=== PATIENT | female | born 1960 | race Caucasian/White ===

== ENCOUNTER → 2016-07-23 13:08 | Outpatient (CLI) | payer MEDICARE, BC ==
[2014-06-01 10:32] VITALS: BMI 20.1
[~2016-07-23 13:08] MED LIST: AZULFIDINE500 MG PO; BAYER CHEWABLE81 MG PO; CALCIUM 600 +1 EAC3 PO; CYMBALTA20 MG PO; DESERYL100 MG PO; DEXILANT60 MG PO; LEVOXYL50 MCG PO; MYSOLINE 50 MG50 MG PO; PEPCID40 MG PO; PHENERGAN25 M1 PO; PLAVIX75 MG PO; REMERON15 MG PO; SEROQUEL XR200 MG PO; SEROQUEL100 MG PO; VITAMIN D50000 UNIT PO; ZOCOR20 MG PO
[2016-07-23 13:46] LABS: BASOPHILS 0.4 % (0.0-2.0); EOSINOPHILS 2.7 % (0-7); HEMATOCRIT 47.1 % (36.0-48.0); HEMOGLOBIN 15.5 g/dL (12-16); IMMATURE GRANULOCYTES 0.3 % (0-5); LYMPHOCYTES 31.6 % (15-50); MCH 30.8 pg (26.0-34.0); MCHC 32.9 g/dL (31.0-37.0); MCV 93.5 fL (80.0-100.0); MEAN PLATELET VOLUME 10.2 fL (7.4-10.4); MONOCYTES 5.2 % (2-11); NEUTROPHILS 59.8 % (40-80); PLATELET COUNT 239 10x3/uL (130-400); RBC 5.04 10x6/uL (4.00-5.40); RDW 12.3 % (11.5-14.5); WBC 7.3 10x3/uL (4.8-10.8)
[2016-07-23 14:06] LABS: ALBUMIN 3.4 g/dL (3.4-5.0); ALKALINE PHOSPHATASE 150 U/L (46-116); ALT (SGPT) 17 U/L (10-68); CALC OSMOLALITY 269 mosm/kg (275-300); CALCIUM 9.7 mg/dL (8.5-10.1); CHLORIDE - SERUM 103 mmol/L (98-107); CREATININE - SERUM 0.8 mg/dL (0.6-1.3); GLUCOSE 79 mg/dL (74-106); POTASSIUM - SERUM 3.5 mmol/L (3.5-5.1); PROTEIN - SERUM 7.2 g/dL (6.4-8.2); SODIUM 136 mmol/L (136-145); THYROID STIMULATING HORMONE 3.52 uIU/mL (0.36-3.74); UREA NITROGEN 11 mg/dL (7-18); eGFR NON AFRICAN AMERICAN 78 mL/min (90-120)
== END | disposition home or self-care (01) ==
LOC: D.LAB 13:08
PROVIDERS: Family Medicine
DX: R63.4 Abnormal weight loss (principal)

== ENCOUNTER 2017-05-25 12:42 | Inpatient (IN) | payer MEDICARE, BC ==
[~2017-05-25] VITALS: Ht 160 cm; Wt 52.4 kg
--- NOTE | 2017-05-25 13:20 | NUR ---
PATIENT TO ROOM AT THIS TIME. VS STABLE. FAMILY AT BEDSIDE. ORIENTED TO ROOM AND CALL LIGHT. CALL LIGHT WITHIN REACH.
[2017-05-25 14:28] LABS: HEMATOCRIT 41.1 % (36.0-48.0); HEMOGLOBIN 13.7 g/dL (12-16); MCH 31.1 pg (26.0-34.0); MCHC 33.3 g/dL (31.0-37.0); MCV 93.4 fL (80.0-100.0); MEAN PLATELET VOLUME 9.6 fL (7.4-10.4); PLATELET COUNT 267 10x3/uL (130-400); RDW 13.1 % (11.5-14.5); WBC 26.3 10x3/uL (4.8-10.8)
[2017-05-25 14:34] VITALS: BP 106/61; BMI 19.5
--- NOTE | 2017-05-25 14:45 | NUR ---
PATIENT IV STARTED IN RIGHT FA X 2 STICKS AT THIS TIME. TOLERATED WITH SMALL AMOUNT OF PAIN. CALL LIGHT WITHIN REACH, FAMILY AT BEDSIDE.
[2017-05-25 14:54] LABS: ALKALINE PHOSPHATASE 128 U/L (46-116); ALT (SGPT) 14 U/L (10-68); CALC OSMOLALITY 265 mosm/kg (275-300); CALCIUM 8.9 mg/dL (8.5-10.1); CARBON DIOXIDE 21.3 mmol/L (21.0-32.0); CHLORIDE - SERUM 100 mmol/L (98-107); CREATININE - SERUM 0.7 mg/dL (0.6-1.3); GLUCOSE 96 mg/dL (74-106); POTASSIUM - SERUM 4.3 mmol/L (3.5-5.1); PROTEIN - SERUM 6.1 g/dL (6.4-8.2); SODIUM 133 mmol/L (136-145); UREA NITROGEN 13 mg/dL (7-18); eGFR NON AFRICAN AMERICAN > 90 mL/min (90-120)
[2017-05-25 15:16] LABS: LYMPHOCYTES 12 % (15-50); NEUTROPHILS 87 % (40-80); PLATELET ESTIMATE NORMAL
--- NOTE | 2017-05-25 16:00 | NUR ---
LEVAQUIN AND IVF STARTED AT THIS TIME. IV INTACT. CALL LIGHT WITHIN REACH.
[2017-05-25 17:01] VITALS: BP 106/61
--- NOTE | 2017-05-25 17:55 | NUR ---
PATIENT IN BED WITH IV INTACT. NO COMPLAINTS. CALL LIGHT WITHIN REACH. FAMILY AT BEDSIDE.
[2017-05-25] MEDS ORDERED: LITHIUM CARBON150 MG PO (18:07)
[2017-05-25] MEDS ORDERED: LAMICTAL200 MG PO (18:08)
[2017-05-25 20:00] VITALS: BP 94/47
--- NOTE | 2017-05-25 21:27 | NUR ---
ALERT,ORIENTED. WATCHING TV QUIETLY. IV INFUSING TO RIGHT ARM WITHOUT REDNESS OR EDEMA NOTED.NON PRODUCTIVE COUGH NOTED. CL IN REACH. FAMILY AT BEDSIDE.
--- NOTE | 2017-05-26 02:00 | NUR ---
PT RESTING IN BED WITH NO DISTRESS. RESPIRATIONS EVEN AND UNLABORED. VISITOR IS AT THE BEDSIDE. SIDE RAILS X 2. BED LOW. CALL LIGHT IN REACH.
--- NOTE | 2017-05-26 04:55 | NUR ---
AROUSES EASILY TO VERBAL STIMULI. NO COMPLAINTS VOICED. CL IN REACH
[2017-05-26 06:07] LABS: BASOPHILS 0.1 % (0-2); EOSINOPHILS 0.8 % (0-7); HEMATOCRIT 36.9 % (36.0-48.0); HEMOGLOBIN 11.8 g/dL (12-16); IMMATURE GRANULOCYTES 0.2 % (0-5); LYMPHOCYTES 14.3 % (15-50); MCH 30.2 pg (26.0-34.0); MCV 94.4 fL (80.0-100.0); MEAN PLATELET VOLUME 9.7 fL (7.4-10.4); MONOCYTES 2.9 % (2-11); NEUTROPHILS 81.7 % (40-80); PLATELET COUNT 279 10x3/uL (130-400); RBC 3.91 10x6/uL (4.00-5.40); RDW 13.3 % (11.5-14.5)
[2017-05-26 06:08] LABS: WBC 13.4 10x3/uL (4.8-10.8)
[2017-05-26 06:31] LABS: CALC OSMOLALITY 268 mosm/kg (275-300); CALCIUM 8.8 mg/dL (8.5-10.1); CARBON DIOXIDE 23.6 mmol/L (21.0-32.0); CHLORIDE - SERUM 104 mmol/L (98-107); CREATININE - SERUM 0.7 mg/dL (0.6-1.3); GLUCOSE 112 mg/dL (74-106); SODIUM 135 mmol/L (136-145); eGFR NON AFRICAN AMERICAN > 90 mL/min (90-120)
[2017-05-26 06:34] LABS: UREA NITROGEN 8 mg/dL (7-18)
--- NOTE | 2017-05-26 07:00 | NUR ---
PT REC'D FROM [facility]ID AGUILAR. UP AMBULATING THROUGH HALLS. NO TROUBLE WITH THIS. AAOX4. REGULAR HEART RATE AND RHYTHM. LUNG SOUNDS DIMINISHED BILAT TO LOWER LOBES. NO FISHMAN, BUT IS LABORED. PIV TO R FA FREE OF REDNESS AND SWELLING. STILL UP AMBULATING. WITH HER.
[2017-05-26 08:04] VITALS: BP 112/52
[2017-05-26 10:54] VITALS: Ht 160 cm; Wt 52.4 kg
[2017-05-26 12:22] VITALS: BP 100/62
--- NOTE | 2017-05-26 13:19 | NUR ---
Patient Name: STONE CEJA Admission Status: Elective Accout number: [id number] Admission Date: 05-25-2017 : 1960 Admission Diagnosis: Attending: RASHMI, Current LOS: 1 Anticipated DC Date: Planned Disposition: Home Primary Insurance: MEDICARE A & B Discharge Planning Comments: CM met with patient to assess discharge planning needs. Patient lives independently at home with her (Bijan) and that is where she plans to discharge too. Her will be the one to drive her home at discharge. She denies use of any DME or has any HH services at this time & does not think she will need HH at this time. CM will continue to follow and assist with discharge planning needs. PCP: [facility] [place] () [phone] Signal Apprentice: Makayla Freitas * Is the patient Alert and Oriented? Yes 0 * How many steps to enter\exit or inside your home? 5 0 * PCP [facility] 0 * Pharmacy [facility] 0 * Preadmission Environment Home with Family 0 * ADLs Independent 0 * Equipment None 0 * List name and contact numbers for known caregivers / representatives who currently or will assist patient after discharge: Bijan () [phone] * Community resources currently utilized None 0 * Additional services required to return to the preadmission environment? No 0 * Can the patient safely return to the preadmission environment? Yes 0 * Has this patient been hospitalized within the prior 30 days at any hospital? No 0 Grand Total: 0
[2017-05-26 16:09] VITALS: BP 92/55
--- NOTE | 2017-05-26 18:50 | NUR ---
ENTERED ROOM TO ADMINISTER IV ABX. PT IV SWOLLEN AND RED. UNABLE TO GET BLOOD RETURN. DC'D WITH CATHETER INTACT. PRESSURE AND DRESSING APPLIED. X2 ATTEMTPS TO RESTART IV. BOTH UNSUCCESSFUL. ASKED JEFF MELENDEZ, TO ATTEMPT TO RESTART.
[2017-05-26 20:00] VITALS: BP 108/63
--- NOTE | 2017-05-26 20:30 | NUR ---
SCHEDULED MEDICATION ADMINISTERED AT THIS TIME. PT HAS NO IV, ONE UNSUCCESSFUL ATTEMPT AT RESTARTING. PT STATED THAT SHE HAS VERY SMALL VEINS AND IS HARD TO GET AN IV STARTED. REQUESTED DWIGHT AGUILAR TO ATTEMPT. SCD'S IN ROOM BUT PT DOES NOT WANT THEM ON AT THIS TIME. SPOUSE AT BEDSIDE. CALL LIGHT IN REACH, WILL CONTINUE WITH PLAN OF CARE.
[2017-05-27] VITALS: BP 123/67
--- NOTE | 2017-05-27 00:47 | NUR ---
24G IV STARTED IN RIGHT WRIST BY DWIGHT AGUILAR. PRN ZOFRAN ADMINISTERED FOR NAUSEA. STARTED IV ABX FROM EARLIER TODAY THAT WAS UNABLE TO BE ADMINISTERED DUE TO IV INFILTRATION. PT DENIES ANY OTHER NEEDS AT THIS TIME. CALL LIGHT IN REACH, WILL CONTINUE TO MONITOR.
[2017-05-27 04:00] VITALS: BP 131/71
[2017-05-27 05:18] LABS: BASOPHILS 0.1 % (0-2); EOSINOPHILS 1.3 % (0-7); HEMATOCRIT 33.7 % (36.0-48.0); IMMATURE GRANULOCYTES 0.3 % (0-5); LYMPHOCYTES 16.6 % (15-50); MCH 30.9 pg (26.0-34.0); MCHC 32.6 g/dL (31.0-37.0); MCV 94.7 fL (80.0-100.0); MEAN PLATELET VOLUME 9.4 fL (7.4-10.4); MONOCYTES 4.4 % (2-11); NEUTROPHILS 77.3 % (40-80); PLATELET COUNT 257 10x3/uL (130-400); RBC 3.56 10x6/uL (4.00-5.40); RDW 13.2 % (11.5-14.5)
[2017-05-27 05:19] LABS: WBC 9.3 10x3/uL (4.8-10.8)
[2017-05-27 05:42] LABS: C-REACTIVE PROTEIN 11.8 mg/dL (0.0-0.9); CALC OSMOLALITY 272 mosm/kg (275-300); CALCIUM 8.7 mg/dL (8.5-10.1); CARBON DIOXIDE 24.5 mmol/L (21.0-32.0); CHLORIDE - SERUM 106 mmol/L (98-107); CREATININE - SERUM 0.6 mg/dL (0.6-1.3); GLUCOSE 105 mg/dL (74-106); POTASSIUM - SERUM 3.6 mmol/L (3.5-5.1); SODIUM 138 mmol/L (136-145); eGFR NON AFRICAN AMERICAN > 90 mL/min (90-120)
[2017-05-27 05:44] LABS: UREA NITROGEN 5 mg/dL (7-18)
--- NOTE | 2017-05-27 07:00 | NUR ---
REPORT RECIEVED ASSUMED CARE. PATIENT IN BED WITH IV INTACT. NO COMPLAINTS AT THIS TIME. CALL LIGHT WITHIN REACH.
[2017-05-27 08:16] VITALS: BP 138/77
--- NOTE | 2017-05-27 10:30 | NUR ---
PATIENT UP AMBULATING IN HALLWAY AT THIS TIME. IV INTACT. NO COMPLAINTS AT THIS TIME.
[2017-05-27 12:14] VITALS: BP 108/69
[2017-05-27] MEDS ORDERED: MUCINEX600 MG PO (12:28)
[2017-05-27] MEDS ORDERED: SINGULAIR10 MG PO (12:28)
[2017-05-27] MEDS ORDERED: TESSALON PERLE100 MG PO (12:28)
[2017-05-27] MEDS ORDERED: LEVAQUIN750 MG PO (12:29)
[2017-05-27] MEDS ORDERED: PREDNISONE10 MG PO (12:29)
[2017-05-27] MEDS ORDERED: BROVANA15 MCG/2 M INH (12:30)
[2017-05-27] MEDS ORDERED: PULMICORT0.5 MG/21 INH (12:30)
[2017-05-27] MEDS ORDERED: IPRAT-ALBUT 0.5-3 ML UPD (12:30)
--- NOTE | 2017-05-27 13:00 | NUR ---
[facility]. CM WILL CONTINUE TO FOLLOW AND ASSIST WITH DISCHARGE PLANNING NEEDS.
--- NOTE | 2017-05-27 13:45 | NUR ---
PATIENT RECIEVED DISCHARGE INSTRUCTIONS. VERBALIZED UNDERSTANDING. QUESTIONS ANSWERED AT THIS TIME. IV REMOVED WITH CATH TIP INTACT. PATIENT FAMILY AT SIDE. AWAITING WC FOR DC.
== END 2017-05-27 14:19 | disposition home or self-care (01) | DRG 190 ==
LOC: D.MS 12:42
PROVIDERS: ADMIT Family Medicine
DX: J44.0 Chronic obstructive pulmonary disease with (acute) lower respiratory infection (principal); J18.1 Lobar pneumonia, unspecified organism; J44.1 Chronic obstructive pulmonary disease with (acute) exacerbation; E86.0 Dehydration; R53.1 Weakness; Z87.891 Personal history of nicotine dependence

== ENCOUNTER → 2017-11-25 16:14 | Outpatient (CLI) | payer MEDICARE, BC ==
[2017-05-26 10:54] VITALS: BMI 19.4
[~2017-11-25 16:14] MED LIST changes: +BROVANA15 MCG/2 M INH; +IPRAT-ALBUT 0.5-3 ML UPD; +LAMICTAL200 MG PO; +LEVAQUIN750 MG PO; +LITHIUM CARBON150 MG PO; +MUCINEX600 MG PO; +PREDNISONE10 MG PO; +PULMICORT0.5 MG/21 INH; +SINGULAIR10 MG PO; +TESSALON PERLE100 MG PO
== END | disposition home or self-care (01) ==
LOC: D.CT 16:14
DX: R93.8 Abnormal findings on diagnostic imaging of other specified body structures (principal)

== ENCOUNTER 2018-02-08 08:54 | Outpatient (CLI) | payer MEDICARE, BC ==
[~2018-02-08] VITALS: Ht 160 cm; Wt 50.9 kg
[2018-02-08 09:16] LABS: BASOPHILS 0.3 % (0-2); EOSINOPHILS 3.4 % (0-7); HEMATOCRIT 40.9 % (36.0-48.0); HEMOGLOBIN 13.1 g/dL (12-16); IMMATURE GRANULOCYTES 0.1 % (0-5); LYMPHOCYTES 33.8 % (15-50); MCH 30.1 pg (26.0-34.0); MONOCYTES 9.1 % (2-11); NEUTROPHILS 53.3 % (40-80); PLATELET COUNT 272 10x3/uL (130-400); RBC 4.35 10x6/uL (4.00-5.40); RDW 13.6 % (11.5-14.5); WBC 6.7 10x3/uL (4.8-10.8)
[2018-02-08] MEDS ORDERED: GABAPENTIN100 MG PO (09:36)
[2018-02-08 09:44] LABS: APTT 28.6 SECONDS (22.8-39.4); INR 0.98 (0.85-1.17); PROTIME 12.6 SECONDS (11.6-15.0)
[2018-02-08 09:47] VITALS: BP 124/76; Ht 160 cm; Wt 50.9 kg
[2018-02-09 14:30] LABS: ACID FAST SMEAR Negative (()); AFB SPECIMEN PROCESSING Concentration (()); FUNGUS STAIN Final report (())
[2018-03-07 19:09] LABS: FUNGUS MYCOLOGY CULTURE Final report (())
== END 2018-02-08 14:12 | disposition home or self-care (01) ==
LOC: D.OPS 08:54
PROVIDERS: Internal Medicine Pulmonary Disease
DX: J18.9 Pneumonia, unspecified organism (principal); B37.0 Candidal stomatitis; J44.0 Chronic obstructive pulmonary disease with (acute) lower respiratory infection; Z87.891 Personal history of nicotine dependence; J30.9 Allergic rhinitis, unspecified; E86.0 Dehydration; K21.9 Gastro-esophageal reflux disease without esophagitis; K50.90 Crohn's disease, unspecified, without complications; D64.9 Anemia, unspecified; R53.82 Chronic fatigue, unspecified; F31.9 Bipolar disorder, unspecified; Z01.812 Encounter for preprocedural laboratory examination

== ENCOUNTER → 2018-02-10 08:40 | Outpatient (CLI) | payer MEDICARE, BC ==
[2018-02-08 09:47] VITALS: BMI 19.8
[~2018-02-10 08:40] MED LIST changes: +GABAPENTIN100 MG PO
[2018-02-11 09:19] LABS: IMMUNOGLOBULIN A 116 mg/dL (87-352); IMMUNOGLOBULIN G 634 mg/dL (700-1600)
[2018-02-13 07:11] LABS: IMMUNOGLOBULIN E 4 IU/mL (0-100)
[2018-02-15 18:10] LABS: FUNGAL - ASP FLAVUS Negative (Neg:<1:1); FUNGAL - ASP NIGER Negative (Neg:<1:1); FUNGAL - ASPER FUMIGATUS Negative (Neg:<1:1)
== END | disposition home or self-care (01) ==
LOC: D.RT 08:40
PROVIDERS: Internal Medicine Pulmonary Disease
DX: J44.9 Chronic obstructive pulmonary disease, unspecified (principal); Z87.01 Personal history of pneumonia (recurrent)

== ENCOUNTER → 2018-07-05 09:12 | Outpatient (CLI) | payer MEDICARE, BC ==
[2018-02-08 09:47] VITALS: BMI 19.8
== END | disposition home or self-care (01) ==
LOC: D.RAD 09:12
DX: J18.9 Pneumonia, unspecified organism (principal)

== ENCOUNTER 2018-11-22 19:09 | Inpatient (IN) | payer MEDICARE, BC ==
[~2018-11-22] VITALS: Ht 160 cm; Wt 50.3 kg
[2018-11-22] MEDS ORDERED: CARAFATE1 G PO (19:19)
--- NOTE | 2018-11-22 19:40 | NUR ---
PAGED RT FOR ABG'S
[2018-11-22 19:55] LABS: HEMATOCRIT 37.3 % (36.0-48.0); HEMOGLOBIN 12.3 g/dL (12-16); MCH 29.1 pg (26.0-34.0); MCV 88.4 fL (80.0-100.0); MEAN PLATELET VOLUME 8.9 fL (7.4-10.4); PLATELET COUNT 242 10x3/uL (130-400); RBC 4.22 10x6/uL (4.00-5.40); WBC 24.2 10x3/uL (4.8-10.8)
[2018-11-22 19:58] LABS: APTT 27.4 SECONDS (22.8-39.4); INR 1.01 (0.85-1.17); PROTIME 12.8 SECONDS (11.6-15.0)
[2018-11-22 20:04] LABS: ALBUMIN 3.5 g/dL (3.4-5.0); ALKALINE PHOSPHATASE 98 U/L (46-116); ALT (SGPT) 24 U/L (10-68); BILIRUBIN - TOTAL 0.72 mg/dL (0.2-1.3); CALC OSMOLALITY 271 mosm/kg (275-300); CALCIUM 9.3 mg/dL (8.5-10.1); CARBON DIOXIDE 24.6 mmol/L (21.0-32.0); CHLORIDE - SERUM 101 mmol/L (98-107); CREATININE - SERUM 0.9 mg/dL (0.6-1.3); GLUCOSE 99 mg/dL (74-106); POTASSIUM - SERUM 3.8 mmol/L (3.5-5.1); PROTEIN - SERUM 6.5 g/dL (6.4-8.2); SODIUM 135 mmol/L (136-145); UREA NITROGEN 17 mg/dL (7-18); eGFR NON AFRICAN AMERICAN 68 mL/min (90-120)
[2018-11-22 20:16] LABS: CREATINE KINASE 57 UL (21-215); PRO BNP 207 pg/mL (0-125); TROPONIN-I < 0.017 ng/mL (0.000-0.060)
[2018-11-22 20:39] LABS: EOSINOPHILS 2 % (0-7); LYMPHOCYTES 7 % (15-50); MONOCYTES 1 % (2-11); NEUTROPHILS 90 % (40-80); PLATELET ESTIMATE NORMAL
--- NOTE | 2018-11-22 20:45 | NUR ---
BEHAVIORAL HEALTH IN ROOM TO DO ASSESSESSMENT
--- NOTE | 2018-11-22 21:05 | NUR ---
PATIENT IS A LOW SUICIDE RISK. PATIENT STATED SHE ATTEMPTED SUICIDE 20 YEARS AGO. SHE ATTEMPTED TO OVERDOSE ON XANAX, WELBUTRIN, AND VODKA. PATIENT DENIES SUICIDE IDEATION AT THIS TIME. CHARGE NURSE AND ATTENDING PHYSICIAN NOTIFIED OF ASSESSMENT FINDINGS. RESOURCES GIVEN TO PATIENT.
[2018-11-23 01:22] VITALS: BP 113/69; BMI 19.7
[2018-11-23 04:00] VITALS: BP 109/63; BP 109/65
[2018-11-23 06:44] LABS: BASOPHILS 0.1 % (0-2); EOSINOPHILS 0.8 % (0-7); HEMATOCRIT 32.6 % (36.0-48.0); HEMOGLOBIN 10.7 g/dL (12-16); IMMATURE GRANULOCYTES 0.4 % (0-5); LYMPHOCYTES 9.7 % (15-50); MCHC 32.8 g/dL (31.0-37.0); MCV 88.3 fL (80.0-100.0); MEAN PLATELET VOLUME 9.6 fL (7.4-10.4); PLATELET COUNT 270 10x3/uL (130-400); RBC 3.69 10x6/uL (4.00-5.40); RDW 13.3 % (11.5-14.5); WBC 19.7 10x3/uL (4.8-10.8)
[2018-11-23 07:13] LABS: CALC OSMOLALITY 285 mosm/kg (275-300); CALCIUM 8.4 mg/dL (8.5-10.1); CARBON DIOXIDE 25.8 mmol/L (21.0-32.0); CHLORIDE - SERUM 111 mmol/L (98-107); CREATININE - SERUM 0.7 mg/dL (0.6-1.3); GLUCOSE 101 mg/dL (74-106); POTASSIUM - SERUM 3.9 mmol/L (3.5-5.1); SODIUM 143 mmol/L (136-145); UREA NITROGEN 15 mg/dL (7-18); eGFR NON AFRICAN AMERICAN 90 mL/min (90-120)
--- NOTE | 2018-11-23 07:30 | NUR ---
REC'D IN ROOM AWAKE AND ALERT. RESP EVEN AND UNLABORED WITH NO DISTRESS NOTED. CAN EXPRESS NEEDS AND WANTS. NO C/O NOTED OR VOICED. ASSESSMENT COMPLETED. C/L IN REACH AT BEDSIDE.
[2018-11-23 08:00] VITALS: BP 121/65
--- NOTE | 2018-11-23 08:15 | NUR ---
PT C/O HEADACHE RATING 7/10 ON PAIN SCALE MEDICATED WITH APAP 650 MG PER ORDERS. C/L IN REACH AT BEDSIDE.
[2018-11-23 12:00] VITALS: BP 110/60
[2018-11-23 12:36] LABS: % SATURATION 8 % (15-55); IRON 28 ug/dl (35-150); TOTAL IRON BIND CAPACITY 328 ug/dl (260-445); UNSAT IRON BIND CAPACITY 300 ug/dl (150-375)
--- NOTE | 2018-11-23 14:16 | NUR ---
I have reviewed this patient and I concur with the Shift Assessment completed by the Licensed Practical Nurse today this shift.
--- NOTE | 2018-11-23 15:27 | NUR ---
REFUSED SCD'S PER CANDICE/DAVID
[2018-11-23 20:00] VITALS: BP 140/82
[2018-11-24] VITALS: BP 132/77
[2018-11-24 04:00] VITALS: BP 105/59
[2018-11-24 06:12] LABS: BASOPHILS 0.2 % (0-2); HEMATOCRIT 33.3 % (36.0-48.0); HEMOGLOBIN 10.8 g/dL (12-16); IMMATURE GRANULOCYTES 0.3 % (0-5); LYMPHOCYTES 13.6 % (15-50); MCH 28.9 pg (26.0-34.0); MCHC 32.4 g/dL (31.0-37.0); MEAN PLATELET VOLUME 9.6 fL (7.4-10.4); MONOCYTES 3.9 % (2-11); PLATELET COUNT 247 10x3/uL (130-400); RBC 3.74 10x6/uL (4.00-5.40); RDW 13.5 % (11.5-14.5); WBC 11.9 10x3/uL (4.8-10.8)
[2018-11-24 06:22] LABS: CALC OSMOLALITY 283 mosm/kg (275-300); CALCIUM 8.9 mg/dL (8.5-10.1); CARBON DIOXIDE 26.7 mmol/L (21.0-32.0); CHLORIDE - SERUM 108 mmol/L (98-107); CREATININE - SERUM 0.7 mg/dL (0.6-1.3); GLUCOSE 96 mg/dL (74-106); POTASSIUM - SERUM 3.5 mmol/L (3.5-5.1); SODIUM 143 mmol/L (136-145); eGFR NON AFRICAN AMERICAN 90 mL/min (90-120)
[2018-11-24 06:24] LABS: UREA NITROGEN 9 mg/dL (7-18)
--- NOTE | 2018-11-24 07:15 | NUR ---
REC'D IN BED WITH EYES CLOSED EASILY TO AROUSED WHEN NAME IS CALLED. RESP EVEN AND UNLABORED WITH NO DISTRESS NOTED. CAN EXPRESS NEEDS AND WANTS. AMBULATE WITH SLOW AND STEADY GAIT. ASSESSMENT COMPLETED. C/L IN REACH AT BEDSIDE.
[2018-11-24 08:00] VITALS: BP 123/70
[2018-11-24 10:15] LABS: FOLATE (FOLIC ACID) - SERUM 14.6 ng/mL (>3.0)
--- NOTE | 2018-11-24 12:01 | NUR ---
RETURNED FROM HER PROCEDURE AT THIS TIME AWAKE AND ALERT. CAN EXPRESS NEED NONE NOTED OR VOICED. C/L IN REACH AT BEDSIDE.
--- NOTE | 2018-11-24 12:39 | MORECARE ---
CASE MANAGEMENT DISCHARGE SUMMARY PATIENT: STONE CEJA UNIT: [id number] ADM DATE: 11/22/18 AGE: 58 : 56 SEX: F [facility] AUTHOR: NALINI HUA PHYSICIAN: REFERRING PHYSICIAN: ARELI BARRON MD DATE OF SERVICE: 11/24/18 Discharge Plan Patient Name: STONE CEJA Facility: [facility]:[place] : 1960 Planned Disposition: Anticipated Discharge Date: Discharge Date: Expected LOS: Initial Reviewer: [email or web address] Initial Review Date: 11/24/2018 Generated: 11/24/18 1:38 pm Comments DCP- Discharge Planning Updated by [email or web address]: Sue Santana on 11/24/18 11:[address] CM attempted to see patient regarding discharge planning. Patient is currently gone for procedure at this time. CM will come back at later time to evaluate discharge needs. Patient Name: STONE CEJA Page [phone] at 1239 All edits/amendments must be made on the electronic document DICTATION DATE: 11/24/18 1238 FLUXER: JULIANO 11/24/18 1238 RPT#: [id number] DC DATE: STATUS: ADM IN [facility] [address] [place] [address] END OF REPORT
[2018-11-24 13:05] VITALS: Ht 160 cm; Wt 50.3 kg
[2018-11-24 16:00] VITALS: BP 106/56
[2018-11-24 16:47] LABS: EOS BF 3 %; MACROPHAGES BF 2 %; NEUT - BF 94 %
[2018-11-24 16:49] LABS: MACROPHAGES BF 9 %; NEUT - BF 90 %
--- NOTE | 2018-11-24 17:48 | NUR ---
I have reviewed this patient and I concur with the Shift Assessment completed by the Licensed Practical Nurse today this shift.
[2018-11-24 20:11] VITALS: BP 125/63
[2018-11-25 05:42] VITALS: BP 134/80
[2018-11-25 06:24] LABS: BASOPHILS 0.1 % (0-2); EOSINOPHILS 2.9 % (0-7); HEMATOCRIT 32.9 % (36.0-48.0); HEMOGLOBIN 10.6 g/dL (12-16); IMMATURE GRANULOCYTES 0.2 % (0-5); LYMPHOCYTES 16.8 % (15-50); MCH 28.9 pg (26.0-34.0); MCHC 32.2 g/dL (31.0-37.0); MCV 89.6 fL (80.0-100.0); MEAN PLATELET VOLUME 9.6 fL (7.4-10.4); MONOCYTES 5.5 % (2-11); NEUTROPHILS 74.5 % (40-80); PLATELET COUNT 228 10x3/uL (130-400); RBC 3.67 10x6/uL (4.00-5.40); RDW 13.5 % (11.5-14.5); WBC 9.9 10x3/uL (4.8-10.8)
[2018-11-25 06:39] LABS: CALC OSMOLALITY 272 mosm/kg (275-300); CALCIUM 9.3 mg/dL (8.5-10.1); CARBON DIOXIDE 25.5 mmol/L (21.0-32.0); CHLORIDE - SERUM 106 mmol/L (98-107); CREATININE - SERUM 0.6 mg/dL (0.6-1.3); GLUCOSE 93 mg/dL (74-106); SODIUM 137 mmol/L (136-145); UREA NITROGEN 9 mg/dL (7-18); eGFR NON AFRICAN AMERICAN > 90 mL/min (90-120)
[2018-11-25 06:45] LABS: POTASSIUM - SERUM 4.3 mmol/L (3.5-5.1)
--- NOTE | 2018-11-25 07:10 | NUR ---
PATIENT RECIEVED FROM PREVIOUS SHIFT RESTING IN BED. PATIENT ADMITTED WITH PNEUMONIA. RESPIRATIONS CLEAR AND NON-LABORED. 02 SAT 97% ON ROOM AIR. PATIENT DENIES ANY NEEDS AT THIS TIME, CL IN EASY REACH
[2018-11-25 07:59] VITALS: BP 101/67
--- NOTE | 2018-11-25 12:03 | MORECARE ---
CASE MANAGEMENT DISCHARGE SUMMARY PATIENT: STONE CEJA UNIT: [id number] ADM DATE: 11/22/18 AGE: 58 : 56 SEX: F ROOM/BED: D.1207 AUTHOR: NALINI HUA PHYSICIAN: REFERRING PHYSICIAN: ARELI BARRON MD DATE OF SERVICE: 11/25/18 Discharge Plan Patient Name: STONE CEJA Facility: [facility]:[place] : 1960 Planned Disposition: Home Anticipated Discharge Date: 11/26/18 Discharge Date: Expected LOS: 4 Initial Reviewer: [email or web address] Initial Review Date: 11/24/2018 Generated: 11/25/18 1:03 pm DCP- Discharge Planning Updated by [email or web address]: Sue Santana on 11/24/18 11:[address] CM attempted to see patient regarding discharge planning. Patient is currently gone for procedure at this time. CM will come back at later time to evaluate discharge needs. Last DP export: 11/24/18 11:39 a Patient Name: STONE CEJA Page [id number] at 1203 All edits/amendments must be made on the electronic document DICTATION DATE: 11/25/181201 MANAGER CLINICAL: JULIANO 11/25/181201 RPT#: [id number] DC DATE: STATUS: ADM IN [facility] [address] [place] [address] END OF REPORT
--- NOTE | 2018-11-25 12:13 | MORECARE ---
CASE MANAGEMENT DISCHARGE SUMMARY PATIENT: STONE CEJA UNIT: [id number] ADM DATE: 11/22/18 AGE: 58 : 56 SEX: F ROOM/BED: D.1207 AUTHOR: NALINI HUA PHYSICIAN: REFERRING PHYSICIAN: ARELI BARRON MD DATE OF SERVICE: 11/25/18 Discharge Plan Patient Name: STONE CEJA Facility: [facility]:[place] : 1960 Planned Disposition: Home Anticipated Discharge Date: 11/26/18 Discharge Date: Expected LOS: 4 Initial Reviewer: [email or web address] Initial Review Date: 11/24/2018 Generated: 11/25/18 1:12 pm DCP- Discharge Planning Updated by [email or web address]: Sue Santana on 11/24/18 11:[address] CM attempted to see patient regarding discharge planning. Patient is currently gone for procedure at this time. CM will come back at later time to evaluate discharge needs. DCPIA - Discharge Planning Initial Assessment Updated by [email or web address]: Gayla Dimas on 11/25/18 12:05 pm * Is the patient Alert and Oriented? Yes * How many steps to enter\exit or inside your home? 4 w/ rail * PCP DR ERIC * Pharmacy [facility] [address] * Preadmission Environment Home with Family * ADLs Independent * Equipment Nebulizer * Other Equipment DENIES ANY ADDITIONAL DME * List name and contact numbers for known caregivers / representatives who currently or will assist patient after discharge: SAMANTHA CEJA- [facility]- [phone] CELL * Verbal permission to speak to the caregivers and representatives has been obtained from the patient. No * Community resources currently utilized None * Please name any agencies selected above. N/A * Additional services required to return to the preadmission environment? No * Can the patient safely return to the preadmission environment? Yes * Has this patient been hospitalized within the prior 30 days at any hospital? No Last DP export: 11/25/18 11:03 a Patient Name: STONE CEJA Page [id number] at 1213 All edits/amendments must be made on the electronic document DICTATION DATE: 11/25/181211 DRY WALL NAILER: JULIANO 11/25/181211 RPT#: [id number] DC DATE: STATUS: ADM IN [facility] [address] [place] [address] END OF REPORT
--- NOTE | 2018-11-25 12:22 | MORECARE ---
CASE MANAGEMENT DISCHARGE SUMMARY PATIENT: STONE CEJA UNIT: [id number] ADM DATE: 11/22/18 AGE: 58 : 56 SEX: F ROOM/BED: D.1207 AUTHOR: MELITA,DOC PHYSICIAN: REFERRING PHYSICIAN: ARELI BARRON MD DATE OF SERVICE: 11/25/18 Discharge Plan Patient Name: STONE CEJA Facility: [facility]:[place] : 1960 Planned Disposition: Home Anticipated Discharge Date: 11/26/18 Discharge Date: Expected LOS: 4 Initial Reviewer: [email or web address] Initial Review Date: 11/24/2018 Generated: 11/25/18 1:22 pm Comments DCP- Discharge Planning Updated by [email or web address]: Gayla Dimas on 11/25/18 11:[address] MET WITH THE PATIENT AT THE BEDSIDE. INTRODUCED SELF AND EXPLAINED CM ROLE . RECEIVED PERMISSION TO PROCEED WITH THE ASSESSMENT. PATIENT'S PLAN IS TO RETURN TO HER HOME W/ HER . SHE FELS SAFE. THEY HAVE BEEN 30 YRS. ALL UTILITIES ARE FUNCTIONAL. SHE WILL HAVE TRANSPORTATION TO HOME. SHE DOES NOT UTILIZE ANY COMMUNITY OR HOME HEALTH. DOES NOT FEEL THERE IS A NEED FOR SERVICES. SHE IS INDEPENDENT IN HER CARE. SHE HAS A SON WHO LIVES IN [place] AND A DAUGHTER WHO LIVES IN [place]. PCP- DR ERIC [facility]ACY [facility] MD- [facility] ANDERS.DEPRESSION HAS IMPROVED WITH MD VISIT AND MEDS ORDERED. STATES DEPRESSION "MUCH IMPROVED". DME- NEBULIZER DENIES ANY NEED FOR HOME HEALTH OR ANY SERVICES. SHE STATES DR BARRON STATED SHE MAYBE DISCHARGED TO HOME THIS PM OR TOMORROW. PATIENT AWAITS DR CRUMP'S VISIT. DCP- Discharge Planning Updated by [email or web address]: Sue Santana on 11/24/18 11:[address] CM attempted to see patient regarding discharge planning. Patient is currently gone for procedure at this time. CM will come back at later time to evaluate discharge needs. DCPIA - Discharge Planning Initial Assessment Updated by [email or web address]: Gayla Dimas on 11/25/18 12:05 pm * Is the patient Alert and Oriented? Yes * How many steps to enter\\exit or inside your home? 4 w/ rail * PCP DR ERIC * Pharmacy [facility] [address] [address] * Preadmission Environment Home with Family * ADLs Independent * Equipment Nebulizer * Other Equipment DENIES ANY ADDITIONAL DME * List name and contact numbers for known caregivers / representatives who currently or will assist patient after discharge: SAMANTHA CEJA- [facility]- [phone] CELL * Verbal permission to speak to the caregivers and representatives has been obtained from the patient. No * Community resources currently utilized None * Please name any agencies selected above. N/A * Additional services required to return to the preadmission environment? No * Can the patient safely return to the preadmission environment? Yes * Has this patient been hospitalized within the prior 30 days at any hospital? No Last DP export: 11/25/18 11:12 a Patient Name: STONE CJEA Page [phone] at 1222 All edits/amendments must be made on the electronic document DICTATION DATE: 11/25/18 1222 ASSISTANT PROFESSOR OF ART: JULIANO 11/25/18 1222 RPT#: [id number] DC DATE: STATUS: ADM IN [facility] [address] [place] [address] END OF REPORT
[2018-11-25] MEDS ORDERED: LEVAQUIN750 MG PO (13:59)
[2018-11-25] MEDS ORDERED: OMNICEF300 MG PO (14:00)
--- NOTE | 2018-11-25 15:21 | NUR ---
IV REMOVED FROM LEFT FOREARM. NO REDNESS OR EDEMA AT SITE. DISCHARGE INSTRUCTIONS GIVEN WITH PATIENT VOICING UNDERSTANDING. WAITING FOR TO ARRIVE FOR TRANSPORT HOME
--- NOTE | 2018-11-25 16:00 | MORECARE ---
CASE MANAGEMENT DISCHARGE SUMMARY PATIENT: STONE CEJA UNIT: [id number] ADM DATE: 11/22/18 AGE: 58 : 56 SEX: F ROOM/BED: D.1207 AUTHOR: MELITA,DOC PHYSICIAN: REFERRING PHYSICIAN: ARELI BARRON MD DATE OF SERVICE: 11/25/18 Discharge Plan Patient Name: STONE CEJA Facility: [facility]:[place] : 1960 Planned Disposition: Home Anticipated Discharge Date: 11/26/18 Discharge Date: Expected LOS: 4 Initial Reviewer: [email or web address] Initial Review Date: 11/24/2018 Generated: 11/25/18 4:59 pm Comments DCP- Discharge Planning Updated by [email or web address]: Gayla Dimas on 11/25/18 11:[address] MET WITH THE PATIENT AT THE BEDSIDE. INTRODUCED SELF AND EXPLAINED CM ROLE . RECEIVED PERMISSION TO PROCEED WITH THE ASSESSMENT. PATIENT'S PLAN IS TO RETURN TO HER HOME W/ HER . SHE FELS SAFE. THEY HAVE BEEN 30 YRS. ALL UTILITIES ARE FUNCTIONAL. SHE WILL HAVE TRANSPORTATION TO HOME. SHE DOES NOT UTILIZE ANY COMMUNITY OR HOME HEALTH. DOES NOT FEEL THERE IS A NEED FOR SERVICES. SHE IS INDEPENDENT IN HER CARE. SHE HAS A SON WHO LIVES IN [place] AND A DAUGHTER WHO LIVES IN [place]. PCP- DR ERIC [facility] MD- [facility] DR [address]ERS.DEPRESSION HAS IMPROVED WITH MD VISIT AND MEDS ORDERED. STATES DEPRESSION "MUCH IMPROVED". DME- NEBULIZER DENIES ANY NEED FOR HOME HEALTH OR ANY SERVICES. SHE STATES DR BARRON STATED SHE MAYBE DISCHARGED TO HOME THIS PM OR TOMORROW. PATIENT AWAITS DR CRUMP'S VISIT. DCP- Discharge Planning Updated by [email or web address]: Sue Santana on 11/24/18 11:[address] CM attempted to see patient regarding discharge planning. Patient is currently gone for procedure at this time. CM will come back at later time to evaluate discharge needs. DCPIA - Discharge Planning Initial Assessment Updated by [email or web address]: Gayla Dimas on 11/25/18 12:05 pm * Is the patient Alert and Oriented? Yes * How many steps to enter\\exit or inside your home? 4 w/ rail * PCP DR ERIC * Pharmacy [facility] [address] * Preadmission Environment Home with Family * ADLs Independent * Equipment Nebulizer * Other Equipment DENIES ANY ADDITIONAL DME * List name and contact numbers for known caregivers / representatives who currently or will assist patient after discharge: SAMANTHA CEJA- [facility]- [phone] CELL * Verbal permission to speak to the caregivers and representatives has been obtained from the patient. No * Community resources currently utilized None * Please name any agencies selected above. N/A * Additional services required to return to the preadmission environment? No * Can the patient safely return to the preadmission environment? Yes * Has this patient been hospitalized within the prior 30 days at any hospital? No Last DP export: 11/25/18 11:22 a Patient Name: STONE CEJA Page [id number] at 1600 All edits/amendments must be made on the electronic document DICTATION DATE: 11/25/181558 REINFORCING STEEL MACHINE OPERATOR: JULIANO 11/25/181558 RPT#: [id number] DC DATE: STATUS: ADM IN [facility] [address] [place] [address] END OF REPORT
--- NOTE | 2018-11-25 17:18 | NUR ---
PATIENT TAKEN BY WHEELCHAIR TO PRIVATE CAR
[2018-11-26 15:09] LABS: ACID FAST SMEAR Negative (()); AFB SPECIMEN PROCESSING Concentration (())
== END 2018-11-25 17:20 | disposition home or self-care (01) | DRG 190 ==
LOC: D.ER 19:09 → D.M3 21:46
PROVIDERS: Emergency Medicine; Family Medicine; Internal Medicine Pulmonary Disease; ADMIT Family Medicine; ATTEND Family Medicine
PROC: 0B9D8ZX Drainage of Right Middle Lung Lobe, Via Natural or Artificial Opening Endoscopic, Diagnostic (ICD-10-PCS; principal; 2018-11-24 10:50)
DX: J44.0 Chronic obstructive pulmonary disease with (acute) lower respiratory infection (principal); J18.1 Lobar pneumonia, unspecified organism; K50.90 Crohn's disease, unspecified, without complications; D64.9 Anemia, unspecified; K21.9 Gastro-esophageal reflux disease without esophagitis; F31.9 Bipolar disorder, unspecified; Z87.891 Personal history of nicotine dependence; Z87.01 Personal history of pneumonia (recurrent)

== ENCOUNTER → 2019-01-03 16:12 | Outpatient (CLI) | payer MEDICARE, BC ==
[2018-11-24 13:05] VITALS: BMI 19.6
[~2019-01-03 16:12] MED LIST changes: +CARAFATE1 G PO; +OMNICEF300 MG PO
== END | disposition home or self-care (01) ==
LOC: D.LABREF 16:12
PROVIDERS: ATTEND Internal Medicine Gastroenterology
DX: Z48.815 Encounter for surgical aftercare following surgery on the digestive system (principal)

== ENCOUNTER → 2019-01-05 07:45 | Outpatient (CLI) | payer MEDICARE, BC ==
[2018-11-24 13:05] VITALS: BMI 19.6
== END | disposition home or self-care (01) ==
LOC: D.RAD 07:45
PROVIDERS: ATTEND Internal Medicine Gastroenterology
DX: R11.2 Nausea with vomiting, unspecified (principal)

== ENCOUNTER 2019-04-07 08:00 | Outpatient (CLI) | payer MEDICARE, BC ==
[2018-11-24 13:05] VITALS: BMI 19.6
== END 2019-04-07 23:59 | disposition home or self-care (01) ==
LOC: D.MAMMO 08:00
PROVIDERS: ATTEND Family Medicine
DX: Z12.31 Encounter for screening mammogram for malignant neoplasm of breast (principal)

== ENCOUNTER 2019-09-07 09:33 | Outpatient (CLI) | payer MEDICARE, BC ==
[~2019-09-07] VITALS: Ht 162.6 cm; Wt 46.6 kg
[2019-09-07 10:07] VITALS: BP 116/70; Ht 162.6 cm; Wt 46.6 kg
--- NOTE | 2019-09-07 10:26 | NUR ---
PT LEFT UNIT ABULATING AT 1026
== END 2019-09-07 10:26 | disposition home or self-care (01) ==
LOC: D.OPS 09:33
PROVIDERS: ATTEND Family Medicine
DX: M81.0 Age-related osteoporosis without current pathological fracture (principal)

== ENCOUNTER 2020-10-31 11:34 | Outpatient (CLI) | payer MEDICARE, BC ==
[~2020-10-31] VITALS: Ht 162.6 cm; Wt 53.6 kg
[2020-10-31 11:56] VITALS: Ht 162.6 cm; Wt 53.6 kg
== END 2020-10-31 12:00 | disposition home or self-care (01) ==
LOC: D.OPS 11:34
PROVIDERS: ATTEND Family Medicine
DX: M81.0 Age-related osteoporosis without current pathological fracture (principal)

== ENCOUNTER 2020-12-03 12:31 | Inpatient (IN) | payer MEDICARE, BC ==
[~2020-12-03] VITALS: Ht 162.6 cm; Wt 54.4 kg
[2020-12-03] MEDS ORDERED: ZANAFLEX2 M1 PO (15:01)
[2020-12-03] MEDS ORDERED: PROPRANOLOL HCL20 MG PO (15:04)
[2020-12-03] MEDS ORDERED: LEXAPRO20 MG PO (15:05)
[2020-12-03] MEDS ORDERED: REMERON15 MG PO (15:05)
[2020-12-03] MEDS ORDERED: PEPCID AC20 MG PO (15:06)
[2020-12-03] MEDS ORDERED: OMEPRAZOLE40 MG PO (15:06)
[2020-12-03] MEDS ORDERED: FERROUS SULFAT325 MG PO (15:07)
[2020-12-03 16:00] VITALS: BP 120/78
[2020-12-03 16:45] LABS: INR 1.07 (0.85-1.17); PROTIME 12.9 SECONDS (11.6-15.0)
[2020-12-03 16:47] LABS: D-DIMER-QUANTITATIVE 1.86 ug/mLFEU (0.20-0.54)
[2020-12-03 16:57] LABS: ALBUMIN 3.5 g/dL (3.4-5.0); ANION GAP 12.8 mmol/L (8-16); BILIRUBIN - TOTAL 0.3 mg/dL (0.2-1.3); CARBON DIOXIDE 23.2 mmol/L (21.0-32.0); CREATININE - SERUM 0.9 mg/dL (0.6-1.3); PROTEIN - SERUM 6.2 g/dL (6.4-8.2)
[2020-12-03 17:09] LABS: CALCIUM 8.9 mg/dL (8.5-10.1)
--- NOTE | 2020-12-03 17:20 | NUR ---
I have reviewed this patient and I concur with the Shift Assessment completed by the Licensed Practical Nurse today this shift.
[2020-12-03 17:24] VITALS: BP 120/78
[2020-12-03 18:10] LABS: BASOPHILS 1.2 % (0-2); EOSINOPHILS 4.2 % (0-7); HEMATOCRIT 31.5 % (36.0-48.0); LYMPHOCYTES 48.8 % (15-50); MCH 25.5 pg (26.0-34.0); MCHC 31.7 g/dL (31.0-37.0); MCV 80.5 fL (80.0-100.0); MEAN PLATELET VOLUME 7.5 fL (7.4-10.4); MONOCYTES 5.4 % (2-11); NEUTROPHILS 40.4 % (40-80); PLATELET COUNT 257 10x3/uL (130-400); RDW 17.7 % (11.5-14.5); WBC 6.9 10x3/uL (4.8-10.8)
--- NOTE | 2020-12-03 18:22 | NUR ---
NG TUBE DROPPED AT THIS TIME WITH 16F TO RIGHT NAREM HOOKED UP TO LIWS AT THIS TIME. TOLETATED WELL. C/L IN REACH AT BEDSIDE,
[2020-12-03 19:58] VITALS: BP 140/77
--- NOTE | 2020-12-03 20:00 | NUR ---
PT SITTING UP IN BED WITHOUT DISTRESS, AOX4. IV LEFT WRIST INFUSING NS @ 125. NGT TO LIS AT THIS TIME. DENIES PAIN OR NEEDS AT THIS TIME. CL IN REACH
[2020-12-04] VITALS (9 sets, daily range): BP systolic 112–143; BP diastolic 73–91; Ht 162.6 cm; Wt 54.4 kg
--- NOTE | 2020-12-04 10:04 | NUR ---
ASSESSMENT COMPLETED PER FLOW SHEET. PATIENT IS WITHOUT DISTRESS,BUT COMPLAINS OF NAUSEA. MEDS PER MAR ORDERED.WANTS COFFEE IF ABLE TO HAVE IT. MONITOR
[2020-12-04 11:08] LABS: BASOPHILS 1.1 % (0-2); EOSINOPHILS 4.2 % (0-7); HEMATOCRIT 34.6 % (36.0-48.0); HEMOGLOBIN 10.7 g/dL (12-16); LYMPHOCYTES 34.8 % (15-50); MCHC 30.9 g/dL (31.0-37.0); MCV 80.9 fL (80.0-100.0); MEAN PLATELET VOLUME 7.2 fL (7.4-10.4); MONOCYTES 6.1 % (2-11); NEUTROPHILS 53.8 % (40-80); PLATELET COUNT 275 10x3/uL (130-400); RBC 4.27 10x6/uL (4.00-5.40); WBC 6.1 10x3/uL (4.8-10.8)
[2020-12-04 11:50] LABS: ALBUMIN 3.2 g/dL (3.4-5.0); ANION GAP 11.4 mmol/L (8-16); BILIRUBIN - TOTAL 0.41 mg/dL (0.2-1.3); CALCIUM 7.8 mg/dL (8.5-10.1); POTASSIUM - SERUM 4.4 mmol/L (3.5-5.1); PROTEIN - SERUM 5.5 g/dL (6.4-8.2)
[2020-12-04 12:33] LABS: INR 1.16 (0.85-1.17); PROTIME 13.7 SECONDS (11.6-15.0)
--- NOTE | 2020-12-04 14:00 | NUR ---
I have reviewed this patient and I concur with the Shift Assessment completed by the Licensed Practical Nurse today this shift.
[2020-12-04] MEDS ORDERED: ABILIFY10 MG PO (17:14)
[2020-12-04] MEDS ORDERED: GABAPENTIN100 MG PO (17:15)
--- NOTE | 2020-12-04 20:00 | NUR ---
PT SITTING UP IN BED WITHOUT DISTRESS, AOX4. PROVIDED ICE WATER. DENIES PAIN OR NAUSEA. REQUESTED ZOFRAN PRIOR TO TAKING HS MEDS STATING IT WOULD BE A LOT ON HER STOMACH AND MIGHT MAKE HER SICK. GAVE ZOFRAN. PT DENIES OTHER NEEDS. CL IN REACH
[2020-12-04] MEDS ORDERED: LITHIUM CARBON300 MG PO ×2 (20:09→20:10)
[2020-12-05 04:26] VITALS: BP 91/59
[2020-12-05 06:26] LABS: EOSINOPHILS 4.4 % (0-7); HEMATOCRIT 31.4 % (36.0-48.0); LYMPHOCYTES 40.4 % (15-50); MCH 25.9 pg (26.0-34.0); MCHC 31.7 g/dL (31.0-37.0); MCV 81.5 fL (80.0-100.0); MEAN PLATELET VOLUME 7.2 fL (7.4-10.4); MONOCYTES 7.1 % (2-11); NEUTROPHILS 47.1 % (40-80); PLATELET COUNT 241 10x3/uL (130-400); RBC 3.86 10x6/uL (4.00-5.40); RDW 17.8 % (11.5-14.5); WBC 5.5 10x3/uL (4.8-10.8)
[2020-12-05 07:09] LABS: ALBUMIN 2.8 g/dL (3.4-5.0); ANION GAP 6.5 mmol/L (8-16); BILIRUBIN - TOTAL 0.37 mg/dL (0.2-1.3); CALCIUM 7.5 mg/dL (8.5-10.1); CARBON DIOXIDE 25.4 mmol/L (21.0-32.0); CREATININE - SERUM 0.9 mg/dL (0.6-1.3); POTASSIUM - SERUM 3.9 mmol/L (3.5-5.1); PROTEIN - SERUM 5.2 g/dL (6.4-8.2)
--- NOTE | 2020-12-05 08:04 | NUR ---
ALERT AND ORIENTED. ASSESSMENT COMPLETE. DENIES NEEDS. BED LOW. CALL LEDESMA AND PERSONAL ITEMS IN REACH. WILL CONTINUE TO MONITOR.
[2020-12-05 08:43] VITALS: BP 98/53
[2020-12-05 10:13] LABS: HEPATITIS C ANTIBODY <0.1 S/CO RAT (0.0-0.9)
--- NOTE | 2020-12-05 10:40 | NUR ---
ORTHOSTATIC BP. 124/74 SITTING. 128/79 STANDING. 134/74 LYING.
[2020-12-05 11:42] LABS: LDL-HDL RATIO 0.8 ratio (1.5-3.5)
[2020-12-05 13:01] VITALS: BP 145/72
[2020-12-05 17:34] VITALS: BP 139/73
[2020-12-05 20:00] VITALS: BP 119/64
--- NOTE | 2020-12-05 20:00 | NUR ---
PT SITTING UP IN BED WITHOUT DISTRESS, AOX4. IV RIGHT HAND INFUSING NS @ 75. DENIES PAIN OR NEEDS AT THIS TIME. CL IN REACH
[2020-12-06] VITALS: BP 87/53
[2020-12-06 04:00] VITALS: BP 104/56
[2020-12-06 07:02] LABS: BASOPHILS 1.1 % (0-2); EOSINOPHILS 6.1 % (0-7); HEMATOCRIT 34.2 % (36.0-48.0); HEMOGLOBIN 10.7 g/dL (12-16); LYMPHOCYTES 47.5 % (15-50); MCH 25.7 pg (26.0-34.0); MCHC 31.3 g/dL (31.0-37.0); MCV 82.1 fL (80.0-100.0); MEAN PLATELET VOLUME 7.7 fL (7.4-10.4); MONOCYTES 5.1 % (2-11); NEUTROPHILS 40.2 % (40-80); PLATELET COUNT 235 10x3/uL (130-400); RBC 4.16 10x6/uL (4.00-5.40); RDW 18.6 % (11.5-14.5); WBC 5.3 10x3/uL (4.8-10.8)
[2020-12-06 07:07] LABS: ALBUMIN 2.9 g/dL (3.4-5.0); ANION GAP 7.8 mmol/L (8-16); BILIRUBIN - TOTAL 0.33 mg/dL (0.2-1.3); CALCIUM 8.3 mg/dL (8.5-10.1); CREATININE - SERUM 0.9 mg/dL (0.6-1.3); POTASSIUM - SERUM 3.8 mmol/L (3.5-5.1); PROTEIN - SERUM 5.5 g/dL (6.4-8.2)
--- NOTE | 2020-12-06 08:14 | NUR ---
AAOX4 UPON ENTERING. ADMINISTERED MORNING MEDICATION, NO DIFFICULTIES. RESTING COMFORTABLY IN BED. DENIES ANY NEEDS AT THIS TIME. BED IN LOWEST POSITION, BED RAILS X2, CALL LIGHT WITHIN REACH. WILL CONITNUE POC. ASSESSMENT PERFORMED AT THIS TIME.
[2020-12-06] MEDS ORDERED: MIDODRINE HCL2.5 MG PO (08:51)
[2020-12-06] MEDS ORDERED: MUCINEX600 MG PO (08:52)
[2020-12-06] MEDS ORDERED: TESSALON PERLE100 MG PO (08:52)
[2020-12-06 08:56] VITALS: BP 106/56
--- NOTE | 2020-12-06 09:44 | NUR ---
PRN MORPHINE FOR BACK PAIN. TOLERATED WELL. RESTING IN BED. DENIES FURTHER NEEDS. WILL CONTINUE POC.
--- NOTE | 2020-12-06 11:43 | MORECARE ---
CASE MANAGEMENT DISCHARGE SUMMARY PATIENT: STONE CEJA UNIT: [id number] ADM DATE: 12/03/20 AGE: 60 : 56 SEX: F ROOM/BED: [facility] AUTHOR: MELITADOC PHYSICIAN: REFERRING PHYSICIAN: MIGUEL ANGEL CARABALLO MD DATE OF SERVICE: 12/06/20 Case Management Discharge Planning Summary DCP REVIEW SUMMARY ANTICIPATED D/C DATE: EXPECTED LOS : CASE STATUS: DCP Initiated INITIAL REVIEW: 12/03/2020 INITIAL REVIEWER: Makayla Freitas FINAL DISCHARGE DISPOSITION: : FINAL REVIEWER: FINAL REVIEW DATE: DCP Focus Questions & Answers QUESTION: ANSWER : PATIENT: STONE CEJA ENCOUNTER: [id number] MEDICAL RECORD#: [id number] ADMISSION DATE: 12/03/2020 DISCHARGE DATE: ATTENDING MD: RASHMI CARABALLO : AGE: 60 MARITAL STATUS: M DC PLAN ID: [id number] FACILITY: [facility] PRINTED ON: 12/06/20 11:42 CT All edits/amendments must be made on the electronic document DICTATION DATE: 12/06/20 114 PLANNING AND ANALYSIS MANAGER: DM 12/06/20 1142 RPT#: [id number] DC DATE: STATUS: ADM IN [facility] [address] [place] [address] END OF REPORT
--- NOTE | 2020-12-06 11:54 | MORECARE ---
CASE MANAGEMENT DISCHARGE SUMMARY PATIENT: STONE CEJA UNIT: [id number] ADM DATE: 12/03/20 AGE: 60 : 56 SEX: F ROOM/BED: D.2217 AUTHOR: MELITA,DOC PHYSICIAN: REFERRING PHYSICIAN: MIGUEL ANGEL CARABALLO MD DATE OF SERVICE: 12/06/20 Case Management Discharge Planning Summary COMMENTS ENTERED DATE: 12/06/20 11:35 CT COMMENT TYPE: Discharge Planning REVIEWER: Makayla Freitas CM met with patient to complete initial dc planning assessment. CM educated patient on the CM role and verbal consent given by patient to complete assessment. Patient lives at home with her where she is states she is independent. At discharge patient plans to return home and feels this is a safe discharge. At this time she is very weak. CM discussed availability of home health, rehab services, and medical equipment. She does not think that she needs anything at home but she is not sure. She has a walker at home from the past that she does not need at this time. She is a patient of Rosalva Hunt at Dr Caraballo's office. She uses that [facility]. We will need to reassess when she is feeling better to get a better idea of needs. Patient denied known discharge needs at this time. CM will continue to follow and will assist as needed with dc plans/needs. DCP REVIEW SUMMARY ANTICIPATED D/C DATE: EXPECTED LOS : CASE STATUS: DCP Initiated INITIAL REVIEW: 12/03/2020 INITIAL REVIEWER: Makayla Freitas FINAL DISCHARGE DISPOSITION: : FINAL REVIEWER: FINAL REVIEW DATE: DCP Focus Questions & Answers QUESTION: ANSWER : PATIENT: STONE CEJA ENCOUNTER: [id number] MEDICAL RECORD#: [id number] ADMISSION DATE: 12/03/2020 DISCHARGE DATE: ATTENDING MD: RASHMI CARABALLO : AGE: 60 MARITAL STATUS: M DC PLAN ID: [id number] FACILITY: [facility] PRINTED ON: 12/06/20 11:54 CT All edits/amendments must be made on the electronic document DICTATION DATE: 12/06/20 1154 MEDICAL CODING INSTRUCTOR: JULIANO 12/06/20 1154 RPT#: [id number] DC DATE: STATUS: ADM IN [facility] [address] [place] [address] END OF REPORT
--- NOTE | 2020-12-06 12:41 | NUR ---
AROUSES EASILY TO VOICE. ADMINISTERED MEDICATION, NO DIFFICULTIES. RESTING COMFORTABLY. DENIES ANY NEEDS. WILL CONTINUE POC.
[2020-12-06 12:46] VITALS: BP 102/49
--- NOTE | 2020-12-06 15:28 | NUR ---
NEW BAG OF FLUIDS AND MEDICATION, NO DIFFICULTIES. AMBULATING WITH PT. DENIES ANY NEEDS AT THIS TIME. WILL CONTINUE POC.
--- NOTE | 2020-12-06 16:33 | NUR ---
PRN TYLENOL-3 FOR PAIN. REGULAR MEDS GIVEN TOO, NO DIFFICULTIES. RESTING COMFORTABLY IN BED. DENIES ANY NEEDS AT THIS TIME. WILL CONTINUE POC.
[2020-12-06 17:27] VITALS: BP 89/46
[2020-12-06 20:00] VITALS: BP 83/48
--- NOTE | 2020-12-07 03:36 | NUR ---
I have reviewed this patient and I concur with the Shift Assessment completed by the Licensed Practical Nurse today this shift.
--- NOTE | 2020-12-07 03:55 | NUR ---
I have reviewed this patient and I concur with the Shift Assessment completed by the Licensed Practical Nurse today this shift.
[2020-12-07 06:18] LABS: BASOPHILS 0.3 % (0-2); EOSINOPHILS 2.1 % (0-7); HEMOGLOBIN 10.5 g/dL (12-16); LYMPHOCYTES 15.9 % (15-50); MCH 25.6 pg (26.0-34.0); MCHC 30.7 g/dL (31.0-37.0); MCV 83.4 fL (80.0-100.0); MEAN PLATELET VOLUME 7.7 fL (7.4-10.4); MONOCYTES 3.4 % (2-11); NEUTROPHILS 78.3 % (40-80); RBC 4.08 10x6/uL (4.00-5.40); RDW 19.4 % (11.5-14.5)
[2020-12-07 06:25] LABS: PLATELET COUNT 171 10x3/uL (130-400); WBC 10.4 10x3/uL (4.8-10.8)
[2020-12-07 06:50] LABS: ALBUMIN 3.3 g/dL (3.4-5.0); BILIRUBIN - TOTAL 0.44 mg/dL (0.2-1.3); CALCIUM 7.9 mg/dL (8.5-10.1); CARBON DIOXIDE 20.7 mmol/L (21.0-32.0); CREATININE - SERUM 1.1 mg/dL (0.6-1.3); POTASSIUM - SERUM 3.7 mmol/L (3.5-5.1); PROTEIN - SERUM 5.3 g/dL (6.4-8.2)
--- NOTE | 2020-12-07 07:30 | NUR ---
REC'D IN BED AWAKE AND ALERT. RSP EVEN AND UNLABORED WITH NO DISTRESS NOTED. CAN EXPRESS NEEDS AND WANTS. NO C/O NOTED OR VOICED. ASSESSMENT COMPLETED. C/L IN REACH AT BEDSIDE.
[2020-12-07 09:19] VITALS: BP 123/73
--- NOTE | 2020-12-07 11:16 | NUR ---
I have reviewed this patient and I concur with the Shift Assessment completed by the Licensed Practical Nurse today this shift.
[2020-12-07 12:51] VITALS: BP 104/56
[2020-12-07 16:13] VITALS: BP 97/54
--- NOTE | 2020-12-07 19:00 | NUR ---
BEDSIDE REPORT RECEIVED AND CARE OF PT ASSUMED. PT LYING IN HIGH THOMPSON'S POSITION WATCHING TV. IV TO RIGHT WRIST PATENT WITH NS INFUSING AT 125 ML/HR. WILL MONITOR FOR NEEDS.
[2020-12-07 20:00] VITALS: BP 107/59
--- NOTE | 2020-12-07 20:58 | NUR ---
HS MEDICATIONS GIVEN TO INCLUDE ZOFRAN PER PT REQUEST FOR NAUSEA. WILL CONTINUE TO MONITOR FOR NEEDS.
--- NOTE | 2020-12-08 02:03 | NUR ---
PT HAD INCONTINENT EPISODE. PROVIDED WARM BATH WIPES AND BRIEFS. ALL BEDDING CHANGED.
[2020-12-08 04:00] VITALS: BP 110/55
--- NOTE | 2020-12-08 06:19 | NUR ---
PT HAD X2 LOOSE BM'S THIS SHIFT, BUT WERE BOTH MIXED WITH URINE, SO UNABLE TO COLLECT SAMPLE FOR ORDERED STUDIES.
[2020-12-08 06:32] LABS: BASOPHILS 0.1 % (0-2); EOSINOPHILS 3.1 % (0-7); HEMATOCRIT 32.9 % (36.0-48.0); HEMOGLOBIN 10.2 g/dL (12-16); IMMATURE GRANULOCYTES 0.3 % (0-5); LYMPHOCYTE ABS# 2.11 10x3/uL (1.18-3.74); LYMPHOCYTES 21.3 % (15-50); MCH 25.8 pg (26.0-34.0); MCV 83.3 fL (80.0-100.0); MEAN PLATELET VOLUME 9.8 fL (7.4-10.4); MONOCYTES 4.7 % (2-11); NEUTROPHIL ABS# 6.97 10x3/uL (1.56-6.13); NEUTROPHILS 70.5 % (40-80); RBC 3.95 10x6/uL (4.00-5.40); RDW 19.8 % (11.5-14.5); WBC 9.9 10x3/uL (4.8-10.8)
[2020-12-08 06:33] LABS: PLATELET COUNT 216 10x3/uL (130-400)
[2020-12-08 06:49] LABS: BILIRUBIN - TOTAL 0.63 mg/dL (0.2-1.3); CALCIUM 8.9 mg/dL (8.5-10.1); CREATININE - SERUM 0.9 mg/dL (0.6-1.3); POTASSIUM - SERUM 4.1 mmol/L (3.5-5.1); PROTEIN - SERUM 5.5 g/dL (6.4-8.2)
[2020-12-08 08:12] VITALS: BP 113/62
--- NOTE | 2020-12-08 08:30 | NUR ---
RESTING IN BED WITH EYES CLOSED, EASILY AROUSES TO VOICE. ADMINISTERED MORNING MEDS, NO DIFFICULTIES. DENIES ANY NEEDS AT THIS TIME. BED IN LOWEST POSITION, BED RAILS X2, CALL LIGHT WITHIN REACH. WILL CONTINUE POC. ASSESSMENT PERFORMED.
[2020-12-08 09:11] LABS: ALBUMIN 2.7 g/dL (3.4-5.0); ANION GAP 11.5 mmol/L (8-16); CARBON DIOXIDE 20.6 mmol/L (21.0-32.0)
--- NOTE | 2020-12-08 12:28 | NUR ---
ADMINISTERED MEDICATION. UPRIGHT ON BEDSIDE EATING LUNCH. FAMILY AT BEDSIDE. DENIES ANY NEEDS AT THIS TIME. WILL CONITNUE POC.
[2020-12-08 12:43] VITALS: BP 105/61
--- NOTE | 2020-12-08 13:14 | MORECARE ---
CASE MANAGEMENT DISCHARGE SUMMARY PATIENT: STONE CEJA UNIT: [id number] ADM DATE: 12/03/20 AGE: 60 : 56 SEX: F ROOM/BED: D.2217 AUTHOR: NALINI HUA PHYSICIAN: REFERRING PHYSICIAN: MIGUEL ANGEL CARABALLO MD DATE OF SERVICE: 12/08/20 Case Management Discharge Planning Summary COMMENTS ENTERED DATE: 12/08/20 13:11 CT COMMENT TYPE: Discharge Planning REVIEWER: Sigifredo Madera Discharge Planning Rescreening completed. No change in discharge plan needed at this time, will continue to monitor. ENTERED DATE: 12/06/20 11:35 CT COMMENT TYPE: Discharge Planning REVIEWER: Makayla Freitas CM met with patient to complete initial dc planning assessment. CM educated patient on the CM role and verbal consent given by patient to complete assessment. Patient lives at home with her where she is states she is independent. At discharge patient plans to return home and feels this is a safe discharge. At this time she is very weak. CM discussed availability of home health, rehab services, and medical equipment. She does not think that she needs anything at home but she is not sure. She has a walker at home from the past that she does not need at this time. She is a patient of Rosalva Hunt at Dr Caraballo's office. She uses that [employer] on [facility]. We will need to reassess when she is feeling better to get a better idea of needs. Patient denied known discharge needs at this time. CM will continue to follow and will assist as needed with dc plans/needs. DCP REVIEW SUMMARY ANTICIPATED D/C DATE: EXPECTED LOS : CASE STATUS: DCP Initiated INITIAL REVIEW: 12/03/2020 INITIAL REVIEWER: Makayla Freitas FINAL DISCHARGE DISPOSITION: : FINAL REVIEWER: FINAL REVIEW DATE: DCP [employer] Questions & Answers QUESTION: ANSWER : PATIENT: STONE CEJA ENCOUNTER: [id number] MEDICAL RECORD#: [id number] ADMISSION DATE: 12/03/2020 DISCHARGE DATE: ATTENDING MD: RASHMI CARABALLO : AGE: 60 MARITAL STATUS: M DC PLAN ID: [id number] FACILITY: [facility] PRINTED ON: 12/08/20 13:14 CT All edits/amendments must be made on the electronic document DICTATION DATE: 12/08/201312 RETAIL BRANCH MANAGER: JULIANO 12/08/20 131 RPT#: [id number] DC DATE: STATUS: ADM IN [facility] [address] [place] [address] END OF REPORT
--- NOTE | 2020-12-08 14:00 | NUR ---
SIGNED ALL NECESSARY DISCHARGE PAPERWORK AT THIS TIME. REMOVED IV FROM RIGHT WRIST. CATHETER TIP INTACT, COVERED WITH GAUZE AND TAPE. TOLERATED WELL. DENIES FURTHER NEEDS FROM HOSPITAL/STAFF AT THIS TIME. WILL BE ESCORTED OUT VIA WHEELCHAIR, ACCOMPANIED BY SPOUSE.
--- NOTE | 2020-12-09 10:19 | MORECARE ---
CASE MANAGEMENT DISCHARGE SUMMARY PATIENT: STONE CEJA UNIT: [id number] ADM DATE: 12/03/20 AGE: 60 : 56 SEX: F ROOM/BED: D.2217 AUTHOR: NALINI HUA PHYSICIAN: REFERRING PHYSICIAN: MIGUEL ANGEL CARABALLO MD DATE OF SERVICE: 12/09/20 Case Management Discharge Planning Summary COMMENTS ENTERED DATE: 12/08/20 13:11 CT COMMENT TYPE: Discharge Planning REVIEWER: Sigifredo Madera Discharge Planning Rescreening completed. No change in discharge plan needed at this time, will continue to monitor. ENTERED DATE: 12/06/20 11:35 CT COMMENT TYPE: Discharge Planning REVIEWER: Makayla Freitas CM met with patient to complete initial dc planning assessment. CM educated patient on the CM role and verbal consent given by patient to complete assessment. Patient lives at home with her where she is states she is independent. At discharge patient plans to return home and feels this is a safe discharge. At this time she is very weak. CM discussed availability of home health, rehab services, and medical equipment. She does not think that she needs anything at home but she is not sure. She has a walker at home from the past that she does not need at this time. She is a patient of Rosalva Hunt at Dr Caraballo's office. She uses that [employer] on [facility]. We will need to reassess when she is feeling better to get a better idea of needs. Patient denied known discharge needs at this time. CM will continue to follow and will assist as needed with dc plans/needs. DCP REVIEW SUMMARY ANTICIPATED D/C DATE: EXPECTED LOS : CASE STATUS: DCP Initiated INITIAL REVIEW: 12/03/2020 INITIAL REVIEWER: Makayla Freitas FINAL DISCHARGE DISPOSITION: : FINAL REVIEWER: FINAL REVIEW DATE: DCP [employer] Questions & Answers QUESTION: ANSWER : PATIENT: STONE CEJA ENCOUNTER: [id number] MEDICAL RECORD#: [id number] ADMISSION DATE: 12/03/2020 DISCHARGE DATE: 12/08/2020 ATTENDING MD: RASHMI CARABALLO : AGE: 60 MARITAL STATUS: M DC PLAN ID: [id number] FACILITY: [facility] PRINTED ON: 12/09/20 10:19 CT All edits/amendments must be made on the electronic document DICTATION DATE: 12/09/20 1019 SALES DIRECTOR: JULIANO 12/09/20 1019 RPT#: [id number] DC DATE:12/08/20 STATUS: DIS IN [facility] [address] [place] [address] END OF REPORT
== END 2020-12-08 14:30 | disposition home or self-care (01) | DRG 389 ==
LOC: D.SDCHOLD 12:31 → D.MS 12:31
PROVIDERS: Emergency Medicine; ADMIT Family Medicine; ATTEND Family Medicine
DX: K56.609 Unspecified intestinal obstruction, unspecified as to partial versus complete obstruction (principal); K50.90 Crohn's disease, unspecified, without complications; E86.0 Dehydration; K21.9 Gastro-esophageal reflux disease without esophagitis; M81.0 Age-related osteoporosis without current pathological fracture; J44.9 Chronic obstructive pulmonary disease, unspecified; F31.9 Bipolar disorder, unspecified; F60.3 Borderline personality disorder